=== PATIENT | female | born 1970 | race American Indian/Alaskan Native ===

== ENCOUNTER 2018-03-17 16:15 | Emergency (ER) | payer SELFPAY ==
[2018-03-17 16:22] VITALS: BP 168/90
[2018-03-17] MEDS ORDERED: PEPCID PO ONE (20:18)
[2018-03-17] MEDS ORDERED: BANOPHEN PO ONE (20:18)
[2018-03-17] MEDS ORDERED: DELTASONE PO ONE (20:18)
--- NOTE | 2018-03-17 20:19 | Emergency Department Report ---
ED General Adult HPI - General Chief complaint: Eye Problems Stated complaint: LIPS SWELLING/EYES RUNNY NOSE Time Seen by Provider: 03/17/18 20:17 Source: patient Mode of arrival: Ambulatory Limitations: No Limitations - History of Present Illness Initial comments: Patient 47-year-old [place] female presents for alleged rhinitis versus allergic reaction symptoms include runny nose eyes generalized pruritus mild lip swelling Patient denies shortness of breath is no dizziness no lightheadedness or nausea vomiting no chest pain no wheezing no stridor symptoms for past 3 days exacerbated by environmental exposure Onset/Timin -: days(s) Location: head, face, mouth, eyes, upper extremity, lower extremity Radiation: non-radiation Severity scale (0 -10): 4 Quality: burning, other (itching ) Consistency: constant Improves with: none Worsens with: other (environmental exposure ) Associated Symptoms: rash. denies: confusion, chest pain, cough, diaphoresis, fever/chills, headaches, loss of appetite, malaise, nausea/vomiting, shortness of breath, syncope, weakness, other (itching ) Treatments Prior to Arrival: none - Related Data Previous Rx's Medication Instructions Recorded Last Taken Type EPINEPHrine [Epipen 2-Arnie] 0.3 mg IJ PRN PRN #1 auto.injct 03/17/18 Unknown Rx Famotidine [Pepcid] 20 mg PO BID PRN #30 tablet 03/17/18 Unknown Rx Fluticasone [Flonase] 1 spray NS QDAY #1 bottle 03/17/18 Unknown Rx diphenhydrAMINE [Benadryl CAP] 25 mg PO Q8HR PRN #30 capsule 03/17/18 Unknown Rx predniSONE [Deltasone] 40 mg PO QDAY 5 Days #10 tab 03/17/18 Unknown Rx Allergies Allergy/AdvReac Type Severity Reaction Status Date / Time No Known Allergies Allergy Unverified 03/17/18 16:19 ED Review of Systems ROS: Stated complaint: LIPS SWELLING/EYES RUNNY NOSE Other details as noted in HPI Constitutional: denies: chills, fever Eyes: denies: eye pain, eye discharge, vision change ENT: congestion. denies: ear pain, throat pain Respiratory: denies: cough, shortness of breath, wheezing Cardiovascular: denies: chest pain, palpitations Endocrine: no symptoms reported Gastrointestinal: denies: abdominal pain, nausea, diarrhea Genitourinary: denies: urgency, dysuria, discharge Musculoskeletal: denies: back pain, joint swelling, arthralgia Skin: denies: rash, lesions Neurological: denies: headache, weakness, paresthesias Psychiatric: denies: anxiety, depression Hematological/Lymphatic: denies: easy bleeding, easy bruising ED Past Medical Hx - Past Medical History Hx Hypertension: Yes - Surgical History Past Surgical History?: No - Social History Smoking Status: Never Smoker Substance Use Type: Alcohol - Medications Home Medications: Home Medications Medication Instructions Recorded Confirmed Last Taken Type EPINEPHrine [Epipen 2-Arnie] 0.3 mg IJ PRN PRN #1 auto.injct 03/17/18 Unknown Rx Famotidine [Pepcid] 20 mg PO BID PRN #30 tablet 03/17/18 Unknown Rx Fluticasone [Flonase] 1 spray NS QDAY #1 bottle 03/17/18 Unknown Rx diphenhydrAMINE [Benadryl CAP] 25 mg PO Q8HR PRN #30 capsule 03/17/18 Unknown Rx predniSONE [Deltasone] 40 mg PO QDAY 5 Days #10 tab 03/17/18 Unknown Rx ED Physical Exam - General Limitations: No Limitations General appearance: alert, in no apparent distress - Head Head exam: Present: atraumatic, normocephalic, normal inspection - Eye Eye exam: Present: normal appearance, PERRL, EOMI. Absent: conjunctival injection, nystagmus, periorbital swelling, periorbital tenderness Pupils: Present: normal accommodation - Expanded Eye Exam Expanded Eyelids: Normal Inspection: Right Pupils: Regular, Round: Bilateral, Reactive: Bilateral Sclera/Conjunctival: Normal Inspection: Bilateral Anterior chamber: Normal Inspection: Bilateral Visual acuity (R) = 20/: 30 Visual acuity (L) = 20/: 30 With correction: No - Expanded ENT Exam Expanded Ear exam: Present: normal external inspection Mouth exam: Present: tongue normal. Absent: drooling, trismus, muffled voice, tongue elevation, laceration Teeth exam: Present: normal inspection Throat exam: Negative: tonsillar erythema, tonsillomegaly, tonsillar exudate, R peritonsillar mass, L peritonsillar mass - Neck Neck exam: Present: normal inspection, full ROM. Absent: tenderness, lymphadenopathy, thyromegaly - Respiratory Respiratory exam: Present: normal lung sounds bilaterally. Absent: respiratory distress, wheezes, stridor, chest wall tenderness - Cardiovascular Cardiovascular Exam: Present: regular rate, normal rhythm, normal heart sounds. Absent: systolic murmur, diastolic murmur, rubs, gallop - GI/Abdominal GI/Abdominal exam: Present: soft, normal bowel sounds. Absent: distended, tenderness, bruit, hernia - Rectal Rectal exam: Present: deferred - Extremities Exam Extremities exam: Present: normal inspection, full ROM, normal capillary refill. Absent: tenderness, pedal edema, joint swelling, calf tenderness - Back Exam Back exam: Present: normal inspection - Neurological Exam Neurological exam: Present: alert, oriented X3, CN II-XII intact, normal gait, reflexes normal. Absent: motor sensory deficit - Psychiatric Psychiatric exam: Present: normal affect, normal mood - Skin Skin exam: Present: warm, dry, intact, normal color, urticaria. Absent: rash, cyanosis, diaphoretic, erythema, vesicles, petechiae, pallor, abrasion, ecchymosis ED Course Vital Signs 03/17/18 16:19 Temperature 98.8 F Pulse Rate 116 H Respiratory 18 Rate Blood Pressure 168/90 O2 Sat by Pulse 98 Oximetry ED Medical Decision Making - Medical Decision Making Symptoms improved with prednisone and Benadryl Pepcid ENT exam patient is PERRLA EOMI conjunctivae are clear bilaterally vision is 20/30 bilaterally TMs clear no pain no erythema no swelling nose is patent no turbinate erythema no edema pharynx is patent uvula midline no trismus no erythema no lesions no exudate was clear bilaterally no wheezing no rash noted generalized or other no lip swelling no periorbital edema no angioedema this is likely allergic rhinitis to be allergic reaction plan DC to home with Benadryl prednisone Pepcid 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 Critical care attestation.: If time is entered above; I have spent that time in minutes in the direct care of this critically ill patient, excluding procedure time. ED Disposition Clinical Impression: Allergic reaction Qualifiers: Encounter type: initial encounter Qualified Code(s): T78.40XA - Allergy, unspecified, initial encounter Allergic rhinitis Qualifiers: Allergic rhinitis trigger: unspecified Allergic rhinitis seasonality: unspecified Qualified Code(s): J30.9 - Allergic rhinitis, unspecified Disposition: DC-01 TO HOME OR SELFCARE Is pt being admited?: No Does the pt Need Aspirin: No Condition: Good Instructions: Allergies (ED), Allergic Rhinitis (ED) Prescriptions: diphenhydrAMINE [Benadryl CAP] 25 mg PO Q8HR PRN #30 capsule PRN Reason: allergies EPINEPHrine [Epipen 2-Arnie] 0.3 mg IJ PRN PRN #1 auto.injct PRN Reason: severe allergies Famotidine [Pepcid] 20 mg PO BID PRN #30 tablet PRN Reason: allergies Fluticasone [Flonase] 1 spray NS QDAY #1 bottle predniSONE [Deltasone] 40 mg PO QDAY 5 Days #10 tab Referrals: PRIMARY CARE,MD [Primary Care Provider] - 3-5 Days Forms: Work/School Release Form(ED) Time of Disposition: 20:48
== END 2018-03-17 21:05 | disposition home or self-care (01) ==
LOC: ED 16:15
DX: T78.40XA Allergy, unspecified, initial encounter (principal); J30.9 Allergic rhinitis, unspecified; I10 Essential (primary) hypertension
CPT/HCPCS: 99282; J7512; Q0163